=== PATIENT | male | born 1975 | race Caucasian/White ===

== ENCOUNTER 2023-06-16 19:43 | Emergency (ER) | payer BC ==
[2023-06-16] MEDS ORDERED: Lidocaine 1% 5 ML VIAL INJECT ONE (19:52)
[2023-06-16] MEDS ORDERED: Diphtheria,Pertussis(Acell),Tetanus Vaccine 0.5 ML Syringe IM ONE (19:53)
[2023-06-16] MEDS ORDERED: Bacitracin Oint 28.35 GM Tube TOP ONE (19:55)
[2023-06-16] MEDS ORDERED: Bacitracin/Neomycin/Polymyxin B Oint 0.9 GM U/D Packet TOP STA (20:11)
== END 2023-06-16 20:30 | disposition home or self-care (01) ==
LOC: CC.ED 19:43
DX: S61.012A Laceration without foreign body of left thumb without damage to nail, initial encounter (principal); Z23 Encounter for immunization; I10 Essential (primary) hypertension; Z79.899 Other long term (current) drug therapy; W45.8XXA Other foreign body or object entering through skin, initial encounter
CPT/HCPCS: 12001; 90471; 90715; 99282-25; A9270-GY; J3490